=== PATIENT | male | born 1990 | race African-American/Black ===

== ENCOUNTER 2025-10-07 04:16 | Emergency (ER) | payer OTHER ==
[~2025-10-07] VITALS: Ht 185.4 cm; Wt 96.6 kg
[2025-10-07 05:09] LABS: BASO # 0.0 10^3/uL (0.0-0.2); BASO % 0.7 % (0.0-1.0); EOS # 0.1 10^3/uL (0.0-0.5); EOS % 2.5 % (0.0-3.0); LYMPH # 2.2 10^3/uL (1.5-5.0); LYMPH % 50.0 % (24.0-44.0); MONO # 0.3 10^3/uL (0.0-0.8); MONO % 7.5 % (2.0-8.0); NEUTROPHILS # 1.7 10^3/uL (1.5-8.5); NEUTROPHILS % 39.1 % (36.0-66.0); PLATELET COUNT, AUTOMATED 222 10^3/uL (150-450)
[2025-10-07 05:11] LABS: CALCIUM LEVEL 8.7 MG/DL (8.5-10.1); CARBON DIOXIDE LEVEL 29 MMOL/L (20-31); CHLORIDE LEVEL 104 MMOL/L (98-107); CREATININE FOR GFR 1.19 MG/DL (0.70-1.30); GLOMERULAR FILTRATION RATE 81.2 (>60); POTASSIUM SERUM 4.3 MMOL/L (3.5-5.1); SODIUM LEVEL 141 MMOL/L (136-145)
[2025-10-07] MEDS: NS (Normal Saline) 0.9% 1,000 ML IV ONE (07:42)
[2025-10-07 07:43] LABS: CK-MB VALUE MASS 1.2 NG/ML (<3.6)
[2025-10-07] MEDS ORDERED: ISOVUE-370 76% 100 ML VIAL As Ordered ONE (07:44)
[2025-10-07 07:50] LABS: CPK CREATINE PHOSPHOKINASE 177 U/L (46-171); MB/CK RELATIVE INDEX 0.67 (< OR =4)
[2025-10-07 08:36] LABS: CK-MB VALUE MASS 1.3 NG/ML (<3.6)
[2025-10-07 08:38] LABS: ALT/SGPT 25 U/L (7.0-40); AST/SGOT 21 U/L (<34); CPK CREATINE PHOSPHOKINASE 175 U/L (46-171); MB/CK RELATIVE INDEX 0.74 (< OR =4)
[2025-10-07 09:15] VITALS: BP 133/84; TEMP 97.2; O2SAT 99
== END 2025-10-07 09:30 | disposition home or self-care (01) ==
LOC: EDBD 04:16 → M ED 04:16
DX: I95.1 Orthostatic hypotension (principal); R00.2 Palpitations; E78.5 Hyperlipidemia, unspecified
CPT/HCPCS: 71046; 71275; 80048; 80076; 82550; 82553; 84443; 84484; 85025; 93005; 93041; 94760; 96360; 96361; 99285; Q9967

== ENCOUNTER 2025-10-11 20:51 | Emergency (ER) | payer OTHER ==
[~2025-10-11] VITALS: Ht 188 cm; Wt 93.7 kg
[2025-10-11 21:19] LABS: BASO # 0.1 10^3/uL (0.0-0.2); BASO % 0.7 % (0.0-1.0); EOS # 0.2 10^3/uL (0.0-0.5); EOS % 3.2 % (0.0-3.0); LYMPH # 1.5 10^3/uL (1.5-5.0); LYMPH % 20.8 % (24.0-44.0); MONO # 0.9 10^3/uL (0.0-0.8); MONO % 12.9 % (2.0-8.0); NEUTROPHILS # 4.4 10^3/uL (1.5-8.5); NEUTROPHILS % 62.3 % (36.0-66.0); PLATELET COUNT, AUTOMATED 217 10^3/uL (150-450)
[2025-10-11 21:44] LABS: CK-MB VALUE MASS 1.1 NG/ML (<3.6)
[2025-10-11 21:46] LABS: ALT/SGPT 19 U/L (7.0-40); AST/SGOT 19 U/L (<34); CALCIUM LEVEL 7.8 MG/DL (8.5-10.1); CARBON DIOXIDE LEVEL 30 MMOL/L (20-31); CHLORIDE LEVEL 107 MMOL/L (98-107); CREATININE FOR GFR 1.08 MG/DL (0.70-1.30); GLOMERULAR FILTRATION RATE > 90.0 (>60); POTASSIUM SERUM 4.1 MMOL/L (3.5-5.1); SODIUM LEVEL 143 MMOL/L (136-145)
[2025-10-11 21:48] LABS: CPK CREATINE PHOSPHOKINASE 130 U/L (46-171); MB/CK RELATIVE INDEX 0.84 (< OR =4)
[2025-10-11 22:54] LABS: INR 1.01
[2025-10-11 23:02] LABS: CK-MB VALUE MASS < 1.0 NG/ML (<3.6)
[2025-10-11 23:06] LABS: CPK CREATINE PHOSPHOKINASE 129 U/L (46-171)
[2025-10-12 00:27] LABS: MAGNESIUM LEVEL 1.8 MG/DL (1.8-2.4)
[2025-10-12 01:34] VITALS: BP 131/85; TEMP 99.8; O2SAT 98
== END 2025-10-12 01:37 | disposition home or self-care (01) ==
LOC: M ED 20:51 → EDBD 20:51 → M ED 10-12 01:37
DX: J06.9 Acute upper respiratory infection, unspecified (principal); R00.2 Palpitations